=== PATIENT | female | born 1950 | race Caucasian/White ===

== ENCOUNTER → 2021-03-31 | Outpatient (CLI) | payer MEDICARE ==
[~2021-03-31] MED LIST: BENADRYL25 M2 PO; K-DUR 10 MEQ T10 MEQ PO; LASIX 20MG TABL20 MG PO; LIPITOR 40MG TA40 MG PO; MASON NATURAL2000 IU PO; NORCO 325 MG-51 TAB PO; OSCAL 500 TAB500 MG PO; TYLENOL 8 HR PO
== END ==
LOC: MC.RAD 10:16
DX: Z12.31 Encounter for screening mammogram for malignant neoplasm of breast (principal); N63.10 Unspecified lump in the right breast, unspecified quadrant; Z80.3 Family history of malignant neoplasm of breast

== ENCOUNTER → 2021-04-02 | Outpatient (CLI) | payer MEDICARE | LOC: MC.RAD 07:39 | DX: N63.10 Unspecified lump in the right breast, unspecified quadrant (principal) ==

== ENCOUNTER 2021-04-09 06:17 | Day surgery (SDC) | payer MEDICARE ==
[~2021-04-09] VITALS: Ht 167.6 cm; Wt 123.5 kg
[~2021-04-09 06:17] MED LIST changes: -K-DUR 10 MEQ T10 MEQ PO; -LASIX 20MG TABL20 MG PO; -LIPITOR 40MG TA40 MG PO; -MASON NATURAL2000 IU PO; -NORCO 325 MG-51 TAB PO; -OSCAL 500 TAB500 MG PO; -TYLENOL 8 HR PO
[2021-04-09 06:39] VITALS: BP 155/79; PULSE 88; TEMP 97.3
[2021-04-09] MEDS ORDERED: TYLENOL 8 HR PO (06:43)
[2021-04-09] MEDS ORDERED: K-DUR 10 MEQ T10 MEQ PO (06:44)
[2021-04-09] MEDS ORDERED: LASIX 20MG TABL20 MG PO (06:45)
[2021-04-09] MEDS ORDERED: LIPITOR 40MG TA40 MG PO (06:45)
[2021-04-09 08:20] VITALS: BP 121/83; PULSE 84; TEMP 97.3
[2021-04-09 08:30] VITALS: BP 126/74; PULSE 68
[2021-04-09 08:45] VITALS: BP 128/78; PULSE 79
[2021-04-09 09:00] VITALS: BP 144/79; PULSE 79
--- NOTE | 2021-04-09 09:30 | NUR ---
0820 Pt arrives from endo procedure via cart. Pt ambulates from cart to recliner with RN assist. Monitors on and alarms set. Call light within reach. Report received from PRICE Arguelles. Pt alert and oriented. Pt denies pain or nausea. Pt requests muffin and juice. No family present. 0840 Pt taking food and drink well. Pt has no complaints. 0900 Discharge instructions given to pt. All questions answered to her satisfaction. Handed to her are a thank you card and discharge information. 0915 Dr. Julian in to visit with pt post-procedure. 0930 Pt transferred out of hospital via wheelchair and this RN to private vehicle driven by friend.
== END 2021-04-09 09:30 | disposition home or self-care (01) ==
LOC: SDCO 06:17
DX: Z12.11 Encounter for screening for malignant neoplasm of colon (principal); D12.4 Benign neoplasm of descending colon; R92.8 Other abnormal and inconclusive findings on diagnostic imaging of breast; I10 Essential (primary) hypertension; E78.5 Hyperlipidemia, unspecified; E66.01 Morbid (severe) obesity due to excess calories; M25.561 Pain in right knee; R60.0 Localized edema; M25.262 Flail joint, left knee; M19.90 Unspecified osteoarthritis, unspecified site; Z20.822 Contact with and (suspected) exposure to COVID-19; Z79.899 Other long term (current) drug therapy; Z68.42 Body mass index [BMI] 45.0-49.9, adult; Z90.710 Acquired absence of both cervix and uterus; Z80.3 Family history of malignant neoplasm of breast; Z80.6 Family history of leukemia; Z80.51 Family history of malignant neoplasm of kidney
CPT/HCPCS: J2704; J7120

== ENCOUNTER → 2021-04-15 | Outpatient (CLI) | payer MEDICARE ==
[~2021-04-15] MED LIST changes: +K-DUR 10 MEQ T10 MEQ PO; +LASIX 20MG TABL20 MG PO; +LIPITOR 40MG TA40 MG PO; +MASON NATURAL2000 IU PO; +NORCO 325 MG-51 TAB PO; +OSCAL 500 TAB500 MG PO; +TYLENOL 8 HR PO
== END ==
LOC: MC.RAD 09:55
DX: C50.911 Malignant neoplasm of unspecified site of right female breast (principal); Z80.3 Family history of malignant neoplasm of breast

== ENCOUNTER → 2021-05-04 | Outpatient (CLI) | payer MEDICARE | LOC: MC.RAD 13:00 | DX: C50.211 Malignant neoplasm of upper-inner quadrant of right female breast (principal) | CPT/HCPCS: A9541; C1769 ==

== ENCOUNTER 2021-05-05 07:38 | Day surgery (SDC) | payer MEDICARE ==
[~2021-05-05] VITALS: Ht 167.6 cm; Wt 121.8 kg
[2021-05-05] VITALS (9 sets, daily range): BP systolic 134–176; BP diastolic 54–91; PULSE 56–84; TEMP 97–98.2
[~2021-05-05 07:38] MED LIST changes: -MASON NATURAL2000 IU PO; -NORCO 325 MG-51 TAB PO; -OSCAL 500 TAB500 MG PO
[2021-05-05] MEDS ORDERED: MASON NATURAL2000 IU PO (08:44)
[2021-05-05] MEDS ORDERED: OSCAL 500 TAB500 MG PO (09:58)
[2021-05-05] MEDS ORDERED: NORCO 325 MG-51 TAB PO (12:26)
--- NOTE | 2021-05-05 15:34 | NUR ---
1520: PATIENT REQUESTING BLUEBERRY MUFFIN AND SPRITE. TOLERATED WELL WITH NO NAUSEA/VOMITING.
--- NOTE | 2021-05-05 16:16 | NUR ---
1405: PATIENT WENT TO RESTROOM, STATED SHE STARTED TO FEEL NAUSOUS. ZOFRAN GIVEN. 1415: PATIENT STATED RELIEF WITH ZOFRAN BUT FELT NAUSOUS WHEN TRYING TO MOVE. LAID PATIENT BACK DOWN AND TOLD TO REST FOR AWHILE.
--- NOTE | 2021-05-05 16:58 | NUR ---
1645: PATIENT STATED RELIEF WITH SCOP PATCH AND ZOFRAN. DISCHARGE INFORMATION GIVEN TO PATIENT AND SON.
--- NOTE | 2021-05-05 17:02 | NUR ---
1700: PATIENT LEFT VIA WHEELCHAIR ASSISTED BY RN WITH SUPPORT PERSON, SON.
== END 2021-05-05 17:04 | disposition home or self-care (01) ==
LOC: SDCO 07:38
DX: C50.211 Malignant neoplasm of upper-inner quadrant of right female breast (principal); C77.3 Secondary and unspecified malignant neoplasm of axilla and upper limb lymph nodes; I10 Essential (primary) hypertension; E78.00 Pure hypercholesterolemia, unspecified; E66.01 Morbid (severe) obesity due to excess calories; Z68.41 Body mass index [BMI] 40.0-44.9, adult; M17.0 Bilateral primary osteoarthritis of knee; Z79.1 Long term (current) use of non-steroidal anti-inflammatories (NSAID); Z20.822 Contact with and (suspected) exposure to COVID-19; Z17.0 Estrogen receptor positive status [ER+]; Z79.899 Other long term (current) drug therapy
CPT/HCPCS: A4648; J1170; J2250; J2405; J2704; J2795; J3010; J7120; Q9968

== ENCOUNTER → 2022-04-01 | Outpatient (CLI) | payer MEDICARE ==
[~2022-04-01] MED LIST changes: +MASON NATURAL2000 IU PO; +NORCO 325 MG-51 TAB PO; +OSCAL 500 TAB500 MG PO
== END ==
LOC: MC.RAD 10:55
DX: N63.20 Unspecified lump in the left breast, unspecified quadrant (principal); Z85.3 Personal history of malignant neoplasm of breast; Z90.710 Acquired absence of both cervix and uterus; Z80.3 Family history of malignant neoplasm of breast

== ENCOUNTER → 2024-04-06 | Outpatient (CLI) | payer MEDICARE | LOC: MC.RAD 09:15 | DX: Z12.31 Encounter for screening mammogram for malignant neoplasm of breast (principal) ==

== ENCOUNTER 2024-06-14 06:53 | Day surgery (SDC) | payer MEDICARE ==
[~2024-06-14] VITALS: Ht 167.6 cm; Wt 121.8 kg
[~2024-06-14 06:53] MED LIST changes: +LR 1,000 ML IV SCH; +Ondansetron 4 MG/2 ML VIAL IV PRN
[2024-06-14 07:16] VITALS: BP 155/61; PULSE 102; TEMP 97.4
[2024-06-14] MEDS ORDERED: Lidocaine PF 2% (20 MG/ML) 5 ML VIAL ONE (08:04)
[2024-06-14] MEDS ORDERED: fentaNYL 50 MCG/ML 2 ML VIAL ONE (08:04)
[2024-06-14] MEDS ORDERED: Ondansetron 4 MG/2 ML VIAL ONE (08:10)
[2024-06-14] MEDS ORDERED: ARIMIDEX1 MG PO (08:16)
[2024-06-14] MEDS ORDERED: PRINIVIL20 MG PO (08:16)
[2024-06-14] MEDS ORDERED: VITAMIN E1000 U/CAP PO (08:17)
[2024-06-14 08:55] VITALS: BP 151/80; PULSE 76; TEMP 97.1
[2024-06-14 09:10] VITALS: BP 148/77; PULSE 68
[2024-06-14 09:25] VITALS: BP 147/72; PULSE 70
--- NOTE | 2024-06-14 09:55 | NUR ---
0855 RETURNS TO ROOM 2 PER CART. AWAKE, ALERT. RESP UNLABORED. AMBULATES TO RECLINER WITH STANDBY ASSIST. DENIES NAUSEA OR ABD PAIN. VITAL SIGNS OBTAINED. CALL LIGHT AT SIDE 0910 TOLERATES PO SODA AND MUFFIN WITHOUT NAUSEA 0918 DISCHARGE INSTRUCTIONS REVIEWED. PATIENT VERBALIZES UNDERSTANDING. COPY PROVIDED IN DISCHARGE FOLDER 0930 AMBULATES TO BATHROOM WITH STANDBY ASSIST. THEN BACK TO RECLINER. DRESSES SELF. AWAITING VISIT WITH DR Cartwright45 DR WALTON HERE TO VISIT WITH PATIENT
== END 2024-06-14 09:55 | disposition home or self-care (01) ==
LOC: SDCO 06:53
DX: D12.2 Benign neoplasm of ascending colon (principal); Z12.11 Encounter for screening for malignant neoplasm of colon; E66.01 Morbid (severe) obesity due to excess calories; Z85.3 Personal history of malignant neoplasm of breast
CPT/HCPCS: J2405; J2704; J3010; J7120